=== PATIENT | female | born 1990 | race Caucasian/White ===

== ENCOUNTER 2016-10-15 07:33 | Inpatient (IN) | payer MEDICAID ==
[~2016-10-15] VITALS: Ht 170.2 cm; Wt 96.5 kg
[2016-11-05] VITALS (58 sets, daily range): BP systolic 92–155; BP diastolic 52–95; PULSE 58–109; TEMP 98.1–99.5
[2016-11-05] MEDS ORDERED: PRENATAL (06:56)
[2016-11-05 07:58] LABS: BASO % 0.3 % (0.0-2.0); EOS % 0.5 % (0-4.0); GRAN # 4.9 (1.4-6.5); GRAN % 75.9 % (42.2-75.2); LYMPH % 15.7 % (20.0-51.0); MEAN CELL VOLUME 88 fl (80.0-100.0); MEAN CORPUSCULAR HGB CONC 33 g/dl (33.0-37.0); MEAN PLATELET VOLUME 9.1 fl (7.4-10.4); MONO # 0.5 (0.1-0.6); MONO % 7.1 % (1.7-9.3); PLATELET COUNT 221 K/mm3 (130-400); RED BLOOD COUNT 4.01 M/mm3 (4.10-5.30); REDCELL DISTRIBUTION WIDTH-CV 14.5 % (11.5-14.5); WHITE BLOOD COUNT 6.4 K/mm3 (4.8-10.8)
[2016-11-05 08:09] LABS: ADJUSTED CALCIUM 9.6 mg/dL (8.4-10.2); ALBUMIN 3.1 gm/dL (3.5-5.0); BILIRUBIN,TOTAL 0.6 mg/dL (0.0-1.0); CALCIUM 8.9 mg/dL (8.4-10.2); CREATININE, serum 0.55 mg/dL (0.52-1.25); POTASSIUM 3.9 mmol/L (3.4-5.0); TOTAL PROTEIN 6.9 gm/dL (6.4-8.2)
[2016-11-05 08:11] LABS: HEMATOCRIT 35.2 % (37.0-47.0); HEMOGLOBIN 11.5 g/dl (12.5-16.0); MEAN CORPUSCULAR HEMOGLOBIN 29 pg (27.0-31.0)
[2016-11-06] VITALS: BP 122/67; PULSE 68
[2016-11-06 00:30] VITALS: BP 133/70; PULSE 75; TEMP 98.7
[2016-11-06 01:30] VITALS: BP 121/67; PULSE 71
[2016-11-06 04:00] VITALS: BP 115/79; PULSE 78; TEMP 98
[2016-11-06 06:44] VITALS: BP 118/56; PULSE 77; TEMP 98.2
[2016-11-06] MEDS ORDERED: IBU800 M1 PO (08:28)
[2016-11-06] MEDS ORDERED: PERCOCET 325 MG1 TA2 PO (08:28)
== END 2016-11-06 11:30 | disposition home or self-care (01) | DRG 775 ==
LOC: EDSTATUS 07:33 → LDRO 10:07 → LDR 11-05 06:52 → OB 11-06 00:30
PROVIDERS: Obstetrics & Gynecology
PROC: 10E0XZZ Delivery of Products of Conception, External Approach (ICD-10-PCS; principal; 2016-11-05)
PROC: 0KQM0ZZ Repair Perineum Muscle, Open Approach (ICD-10-PCS; 2016-11-05)
PROC: 3E033VJ Introduction of Other Hormone into Peripheral Vein, Percutaneous Approach (ICD-10-PCS; 2016-11-05)
DX: O14.04 Mild to moderate pre-eclampsia, complicating childbirth (principal); O36.0130 Maternal care for anti-D [Rh] antibodies, third trimester, not applicable or unspecified; O70.1 Second degree perineal laceration during delivery; O34.43 Maternal care for other abnormalities of cervix, third trimester; N87.9 Dysplasia of cervix uteri, unspecified; O75.89 Other specified complications of labor and delivery; Z3A.37 37 weeks gestation of pregnancy; Z37.0 Single live birth
CPT/HCPCS: J2590; J2790; J7120